=== PATIENT | female | born 1985 | race Caucasian/White ===

== ENCOUNTER 2023-01-05 13:32 | Emergency (ER) | payer OTHER, SELFPAY ==
--- NOTE | ~2023-01-05 | CT_ITS ---
EXAMINATION: CT brain wo con DATE: 01/05/2023 13:57 INDICATION: Headache. TECHNIQUE: Computed tomography (CT) of the head was performed without intravenous contrast. The mA wa s adjusted according to patient size. Iterative reconstruction technique was employed. The dose-lengt h product was 605.33 mGy-cm. COMPARISON: None FINDINGS: There is no intracranial hemorrhage, acute infarction, or abnormal intracranial mass lesion . The ventricles are normal in size. The orbits are normal. The mastoid air cells are normal. The par anasal sinuses are clear. IMPRESSION: 1. Normal brain. Reviewed, dictated and finalized at location A. IMPRESSION: 1. Normal brain.
[2023-01-05 13:34] VITALS: BP 132/71; PULSE 79; RESP 16; TEMP 36.6; O2SAT 99
--- NOTE | 2023-01-05 13:48 | ED.HA ---
HPI - Headache General Chief Complaint: Headache Stated Complaint: headache Time Seen by Provider: 01/05/23 13:39 History of Present Illness HPI Narrative: Patient is a 37-year-old female here for evaluation of headache today. Patient states that she woke up with a diffuse pounding headache unlike when she has had in the past. She states that she did take some Tylenol and ibuprofen without any relief of her symptoms. Reports some nausea but no vomiting. Visual changes, weakness, numbness or tingling in the arms or legs. Has never had a headache like this in the past. Having some upper respiratory infectious symptoms yesterday but none today. Related Data Allergies Allergy/AdvReac Type Severity Reaction Status Date / Time No Known Allergies Allergy Unverified 08/13/17 10:32 Review of Systems Review of Systems: Gen.: Denies fevers or chills Eyes: Denies eye pain or visual change ENT: Denies congestion Respiratory: Denies shortness of breath or cough CV: Denies chest pain or palpitations GI: Denies abdominal pain nausea, emesis or diarrhea denies burning, urgency, frequency or hematuria Musculoskeletal: Denies back pain or muscle pain Neuro: Reports headache. Denies numbness, tingling, weakness or focal weakness Skin: Denies rash Except as documented, all other systems reviewed and negative Exam Narrative: APPEARANCE: Well appearing, no pain in distress, well-nourished. Head: Normocephalic and atraumatic. EYES: PERRLA/EOMI, conjunctivae clear NOSE: No nasal drainage EARS: External ear normal in appearance THROAT: Oropharynx is clear. Mucous membranes are moist. NECK: Supple. No adenopathy, no masses. RESPIRATORY: Airway patent, respirations nonlabored. Clear to auscultation bilaterally, no rales, rhonchi, wheezing. CARDIOVASCULAR: Regular rate and rhythm without murmurs, rubs, or gallops. ABDOMINAL: Normoactive bowel sounds. Soft, nontender, nondistended. No rebound tenderness or guarding. MUSCULOSKELETAL: Full range of motion of the neck without pain. Extremities are warm and well-perfused. Moves all extremities well. No edema. NEURO: Cranial nerves II through XII intact. Normal speech. SKIN: Skin is warm and dry. No rashes. PSYCHIATRIC: Normal affect/mood. Course Vital Signs Vital signs: Vital Signs Temperature 97.8 F 01/05/23 13:34 Pulse Rate 79 01/05/23 13:34 Respiratory Rate 16 01/05/23 13:34 Blood Pressure 132/71 01/05/23 13:34 Pulse Oximetry 99 01/05/23 13:34 Oxygen Delivery Room Air 01/05/23 13:34 Temperature 97.8 F 01/05/23 13:34 Pulse Rate 79 01/05/23 13:34 Respiratory Rate 16 01/05/23 13:34 Blood Pressure 132/71 01/05/23 13:34 Pulse Oximetry 99 01/05/23 13:34 Oxygen Delivery Room Air 01/05/23 13:34 MDM - Headache MDM Narrative Medical decision making narrative: This patient presents with a headache most consistent with benign headache from either tension type headache vs migraine. No headache red flags. Neurologic exam without evidence of meningismus, AMS, focal neurologic findings so doubt meningitis, encephalitis, stroke. Presentation not consistent with acute intracranial bleed to include SAH (lack of risk factors, headache history). No history of trauma so doubt ICH. Given history and physical temporal arteritis unlikely, as is acute angle closure glaucoma. Doubt carotid artery dissection given no focal neuro deficits, no neck trauma or recent neck strain. Patient with no signs of increased intracranial pressure or weight loss and history and physical suggest more benign headache so less likely mass effect in brain from tumor or abscess or idiopathic intracranial hypertension. Pain was controlled with headache cocktail and patient discharged home with PMD follow up. Discharge Plan Discharge Clinical Impression: Migraine Patient Disposition: Home, Self-Care Condition: Stable Instructions: Antibiotic Form, Acute Headache (ED) A
[2023-01-05] MEDS: SODIUM CHLORIDE 0.9% IV 1,000 ML 999 ML IV CONT (14:17)
[2023-01-05] MEDS: diphenhydrAMINE HCl INJ 50 MG/ML VIAL 25 MG IV PUSH (14:18)
[2023-01-05] MEDS: PROCHLORPERAZINE EDISYLATE 10 MG/2 ML VIAL IV PUSH (14:18)
== END 2023-01-05 15:25 | disposition home or self-care (01) ==
PROVIDERS: Emergency Provider Physician Assistant
DX: G43.909 Migraine, unspecified, not intractable, without status migrainosus (principal)
CPT/HCPCS: 70450; 96361; 96374; 96375; 99284; J0780; J1200; J7030